=== PATIENT | male | born 1950 | race Caucasian/White ===

== ENCOUNTER 2017-08-17 10:41 | Day surgery (SDC) | payer MEDICARE ==
[2017-08-16 10:49] VITALS: BMI 23.3
[2017-08-17] MEDS ORDERED: Bupivacaine HCl 0.5%/Epinephrine 1:200,000/PF 30 ml Vial ONE ×2 (11:30→16:24)
[2017-08-17] MEDS ORDERED: Lidocaine 2% 10 ML INJ ONE (11:30)
[2017-08-17] MEDS ORDERED: Protamine Sulfate 50 MG/5 ML VIAL ONE (11:30)
[2017-08-17] MEDS ORDERED: Heparin 5,000 UNITS/ML VIAL ONE (11:30)
[2017-08-17] MEDS ORDERED: Fentanyl 100 MCG/2 ML VIAL ONE (11:48)
[2017-08-17] MEDS ORDERED: Midazolam HCl 2 mg/2 ml Vial ONE ×2 (11:48→12:14)
[2017-08-17 11:51] LABS: #Basophils 0.1 thou/uL (0.0-0.2); #Eosinphils 0.4 thou/uL (0.0-0.7); #Lymphocytes 0.8 thou/uL (1.20-3.40); #Monocytes 0.6 thou/uL (0.11-0.59); %Basophils 1.1 % (0.0-1.0); %Eosinophils 5.3 % (0.0-10.0); %Lymphocytes 12.3 % (21.0-51.0); %Monocytes 8.7 % (0.0-10.0); %Neutrophils 72.6 % (42.0-75.0); Mean Corpuscular HGB CONC 31.3 g/dL (32.0-36.0); Mean Corpuscular Hemoglobin 29.3 pg (27.0-31.0); Mean Corpuscular Volume 93.5 fl (80.0-94.0); Platelet Count 321 thou/uL (130-400); Red Blood Cell (RBC) Count 3.77 mill/uL (4.70-6.10); White Blood Cell (WBC) Count 6.8 thou/uL (4.8-10.8)
[2017-08-17] MEDS ORDERED: CEFAZOLIN/Water 2 GM/20 ML SYRINGE ONE (11:57)
[2017-08-17 12:01] LABS: Anion Gap 12 mmol/L (10-20); BUN (Urea Nitrogen) 25 mg/dL (8.4-25.7); Calc. Creatinine Clearance 17 mL/min (70-130); Calcium 8.8 mg/dL (7.8-10.44); Carbon Dioxide 26 mmol/L (23-31); Chloride 103 mmol/L (98-107); Estimated GFR-MDRD 16; Glucose 130 mg/dL (80-115); Potassium 4.3 mmol/L (3.5-5.1); Sodium 137 mmol/L (136-145)
[2017-08-17] MEDS ORDERED: Propofol 500 MG/50 ML VIAL ONE (12:14)
[2017-08-17] MEDS ORDERED: Heparin 10,000 UNITS/ 10 ML VIAL ONE ×2 (16:22→16:29)
[2017-08-17] MEDS ORDERED: Lidocaine 1% PF 5 ML VIAL ONE (16:29)
[2017-08-17] MEDS ORDERED: Ondansetron HCl/PF 4 MG/2 ML Vial ONE (16:29)
[2017-08-17] MEDS ORDERED: PROPOFOL 200 MG/20 ML VIAL ONE (16:29)
--- NOTE | 2017-08-17 16:42 | OP ---
DATE OF PROCEDURE: 08/17/2017 PREOPERATIVE DIAGNOSIS: End-stage renal disease. POSTOPERATIVE DIAGNOSIS: End-stage renal disease. PROCEDURE: Right arm primary fistula inflow proximal radial artery, outflow, perforating branch ante cubital vein with anatomically primary outflow cephalic vein with secondary outflow basilic vein. Ou tflow cephalic vein calibrated to 4 mm coronary dilator. SURGEON: Kishan Angel M.D. ANESTHESIA: Regional TIVA. PROCEDURE: The patient was taken to the operating room under regional anesthesia. The right upper e xtremity was prepared with ChloraPrep, draped in routine fashion. The incision was made in the proxi mal volar forearm longitudinally, carried down through skin and subcutaneous tissue below the antecub ital fossa. Antecubital vein identified. It branched into basilic and cephalic vein of adequate arlene iber. There was a large perforating branch dissected free and branches divided between clips and 4-0 silk ties and spatulated over a branch point and interrogated with coronary dilators, passing mclean ry dilators from a 2 mm to a 4 mm dilator out the cephalic vein outflow without obstruction throughou t the length. Secondary outflow due to anatomic considerations was the basilic vein. Retrograde ant ecubital vein preserved, although small. Proximal radial artery, brachial artery, ulnar artery disse cted free and all were of good caliber and good condition without arteriosclerotic disease. The klaus ent was given 6000 units heparin intravenously. After adequate circulation time, the brachial artery , ulnar artery, and proximal radial artery were clamped and longitudinal arteriotomy made in the prox imal radial artery elongated with the Arguelles scissors and end vein perforated to the side, proximal ra dial artery anastomosis created with continuous suture of 6-0 Prolene. Vascular clamps released. Th ere was excellent flow in the fistula out the cephalic vein interrogated by Doppler. The patient was given 50 mg of protamine intravenously by Anesthesia. Good hemostasis noted. Subcutaneous tissue a pproximated with 3-0 Monocryl, skin with subdermal 4-0 Monocryl and DermaGlue applied.
== END 2017-08-17 16:30 | disposition home or self-care (01) ==
LOC: SDC 10:41
PROVIDERS: ATTEND Specialist
PROC: 031B0ZF Bypass Right Radial Artery to Lower Arm Vein, Open Approach (ICD-10-PCS; principal; 2017-08-17)
DX: I12.0 Hypertensive chronic kidney disease with stage 5 chronic kidney disease or end stage renal disease (principal); E11.22 Type 2 diabetes mellitus with diabetic chronic kidney disease; N18.6 End stage renal disease; G91.9 Hydrocephalus, unspecified; Z79.899 Other long term (current) drug therapy; Z99.2 Dependence on renal dialysis; Z98.890 Other specified postprocedural states
CPT/HCPCS: 80048; 85025; 93005; 93010; J0670; J1644; J2001; J2250; J2405; J2704; J2720; J3010